=== PATIENT | male | born 1960 | race African-American/Black ===

== ENCOUNTER 2019-11-04 09:06 | Day surgery (SDC) | payer MEDICAID, OTHER ==
[~2019-11-04] VITALS: Ht 180.3 cm; Wt 87.0 kg
[2019-11-04] MEDS ORDERED: LEVETIRACETAM 1000MG/100ML 100 ML IV ONE (09:30)
[2019-11-04] MEDS ORDERED: ACETAZOLAMIDE SODIUM 500MG/VIAL IV ONE (09:45)
[2019-11-04] MEDS ORDERED: CIPROFLOXACIN 0.3% OPHTH SOLN 2.5ML ONE (10:00)
[2019-11-04] MEDS ORDERED: PREDNISOLONE ACETATE 1% OPHTH DROPS 5ML ONE (10:00)
[2019-11-04] MEDS ORDERED: BALANCED SALT IRRIG SOLN 15ML ONE (10:00)
[2019-11-04] MEDS ORDERED: LIDOCAINE HCL/PF 2% 20 MG/ML 10ML VIAL ONE (10:00)
[2019-11-04] MEDS ORDERED: BUPIVACAINE HCL/PF 0.75% (7.5MG/ML) 10ML ONE (10:00)
[2019-11-04] MEDS ORDERED: LIDOCAINE HCL 2%/EPINEPHRINE 1:100,000 20 ML VIAL INFIL ONE (10:00)
[2019-11-04 10:10] LABS: BASOPHILS % 0.7 % (0.0-2.0); EOSINOPHILS % 5.2 % (0.0-5.0); HEMATOCRIT. 43.9 % (42.0-52.0); HEMOGLOBIN. 15.1 g/dL (14.0-18.0); LYMPHOCYTES % 31.6 % (20.0-50.0); MEAN CORPUSCULAR HEMOGLOBIN 32.6 pg (28.0-32.0); MEAN CORPUSCULAR VOLUME 94.9 fL (80.0-94.0); MONOCYTES % 9.7 % (2.0-8.0); NEUTROPHILS % 52.8 % (40.0-76.0); PLATELET 203 x1000/uL (130-400); RED BLOOD CELL COUNT 4.63 mill/uL (4.7-6.1); RED CELL DISTRIBUTION WIDTH 13.1 % (11.6-14.6)
[2019-11-04 10:19] LABS: CHLORIDE 111 mEq/L (98-107)
[2019-11-04 10:20] LABS: INR 1.1; PROTHROMBIN TIME 11.2 sec (9.6-11.0)
[2019-11-04 10:23] LABS: ETHANOL BLOOD < 10 mg/dL
[2019-11-04 12:47] VITALS: BP 112/61
[2019-11-04] MEDS ORDERED: PROPOFOL 200MG/20ML VIAL IV ONE (13:28)
== END 2019-11-04 16:30 | disposition home or self-care (01) ==
LOC: ER 09:06 → OR 10:35 → EDBEDREQTM 10:39 → EDBEDREQ 10:39 → ENRESERV 11:59 → OR 16:30 → CANRESERV 22:47 → ENRESERV 22:47 → CMPBEDREQ 11-06 23:19
PROVIDERS: ATTEND Ophthalmology
DX: E11.39 Type 2 diabetes mellitus with other diabetic ophthalmic complication (principal); H40.10X0 Unspecified open-angle glaucoma, stage unspecified; H57.89 Other specified disorders of eye and adnexa; I10 Essential (primary) hypertension; Z79.899 Other long term (current) drug therapy; Z98.890 Other specified postprocedural states; Z72.89 Other problems related to lifestyle
CPT/HCPCS: 36415; 66180; 80053; 80320; 85025; 85610; 93005; J1120; J3490; J2704; G0480